=== PATIENT | male | born 1960 | race Caucasian/White ===

== ENCOUNTER 2020-05-04 13:02 | Emergency (ER) | payer OTHER ==
[~2020-05-04] VITALS: Ht 193 cm; Wt 102.1 kg
[2020-05-04 13:12] VITALS: BP_SYST 153
[2020-05-04] MEDS ORDERED: LIDOCAINE 1% 10 MG/ML, 20 ML MDV INJ ONE (13:45)
[2020-05-04] MEDS ORDERED: BACITRACIN 1 GM OINT TP ONE (13:45)
[2020-05-04] MEDS ORDERED: DIPH-TET-PERTUS Vaccine 0.5 ML VIAL (ADACEL) I.M. ONE (13:45)
[2020-05-04 14:50] VITALS: BP_SYST 144
== END 2020-05-04 14:50 | disposition home or self-care (01) ==
LOC: SED 13:02
DX: S01.21XA Laceration without foreign body of nose, initial encounter (principal); S01.511A Laceration without foreign body of lip, initial encounter; W01.0XXA Fall on same level from slipping, tripping and stumbling without subsequent striking against object, initial encounter; Y93.89 Activity, other specified; Y92.89 Other specified places as the place of occurrence of the external cause; Y99.8 Other external cause status
CPT/HCPCS: 12014; 90471; 90715; 99283; J2001

== ENCOUNTER 2021-08-26 13:05 | Inpatient (IN) | payer OTHER ==
[~2021-08-26] VITALS: Ht 193 cm; Wt 99.8 kg
--- NOTE | 2021-08-26 13:10 | NUR ---
Placed in room 05 . Placed on business analyst e[employer], blood pressure machine and pulse oximeter. To gown for exam. Side rails up.
[2021-08-26 13:15] VITALS: BP_SYST 154
[2021-08-26] MEDS ORDERED: MORPHINE 4 MG INJ. 4 MG/ML VIAL ONE (13:38)
[2021-08-26] MEDS ORDERED: NITROGLYCERIN 1 INCH (GM) OINT. ONE (13:39)
--- NOTE | 2021-08-26 13:40 | NUR ---
RECEIVED PT FROM LEILA, PT IS AAOX4. PT HAS C/O C/P THAT ARE RESOLVED AT THIS TIME. RESP E/U. NO R/A. ABDOMEN SOFT, NONTENDER, NONDISTENDED. BOWEL SOUNDS ACTIVE X4. PT DENIES N/V/D/C. DISTAL PULSES NORMAL, NO EDEMA. IV CATH 20 INSERTED TO , SITE WNL. S/L. PT HAS NO PAST MEDICAL HX.
--- NOTE | 2021-08-26 13:53 | NUR ---
Morphine ivp prn given for c/p.
[2021-08-26 14:10] LABS: BASOPHILS # (AUTO) 0.1 K/uL (0.0-0.2); BASOPHILS % (AUTO) 1.4 % (0.0-2.0); EOSINOPHILS % (AUTO) 0.5 % (0.0-4.0); HEMATOCRIT 43.8 % (36-54); HEMOGLOBIN 15.6 g/dL (14.0-18.0); LYMPHOCYTES # (AUTO) 1.7 K/uL (1.0-5.5); LYMPHOCYTES % (AUTO) 23.4 % (20.5-51.5); MEAN CORPUSCULAR HEMOGLOBIN 31 pg (27-31); MEAN CORPUSCULAR HGB CONC 36 % (32-36); MEAN CORPUSCULAR VOLUME 86 fL (79.0-98.0); MONOCYTES # (AUTO) 0.5 K/uL (0.0-1.0); MONOCYTES % (AUTO) 7.1 % (1.7-9.3); NEUTROPHILS % (AUTO) 67.6 % (40.0-70.0); PLATELET COUNT (AUTO) 282 K/uL (130-430); RED BLOOD CELL COUNT(AUTO) 5.07 MIL/uL (4.2-6.2); RED CELL DISTRIBUTION WIDTH 13.5 % (9.0-15.0); WHITE BLOOD COUNT (AUTO) 7.3 K/uL (4.8-10.8)
[2021-08-26 14:24] LABS: ALBUMIN 3.8 g/dL (3.4-4.8); CALCIUM 8.9 mg/dL (8.4-11.0); CREATININE 1.3 mg/dL (0.55-1.30); TOTAL BILIRUBIN 0.7 mg/dL (0.0-1.0)
[2021-08-26 14:33] LABS: POTASSIUM 3.4 mmol/L (3.5-5.1)
--- NOTE | 2021-08-26 14:40 | NUR ---
RECEIVED ORDER FROM DR. VELÁSQUEZ, PT IS TO ADMIT TO TELE FOR C/P, CARDIAC DIET WITH CONSULT OF DR. Oliver VELÁSQUEZ. ORDERS CARRIED OUT. PT MADE AWARE.
--- NOTE | 2021-08-26 14:41 | NUR ---
Admit bed requested Patient will be admitted to care of . Admitted to TELEMETRY unit. Diagnosis CHEST PAIN Inpatient (Yes or No) Observation (Yes or No) Orientation concerns or request close to nursing station (Yes or No) Covid Status On vent or bipap Isolation requirements Needs a sitter From Home (Yes or if No enter name of facility) Requires Dialysis (Yes or No) Med Rec Completed (Yes of No)
--- NOTE | 2021-08-26 14:43 | NUR ---
PT HAS NO HOME MEDS.
--- NOTE | 2021-08-26 14:44 | NUR ---
Admit bed requested Patient will be admitted to care of . Admitted to TELEMETRY unit. Diagnosis CHEST PAIN Inpatient (Yes or No) YES Observation (Yes or No) NO Orientation concerns or request close to nursing station (Yes or No) NO Covid Status NEG On vent or bipap NO Isolation requirements NO Needs a sitter NO From Home (Yes or if No enter name of facility) HOME Requires Dialysis (Yes or No) NO Med Rec Completed (Yes of No) YES
[2021-08-26] MEDS ORDERED: ONDANSETRON HCL 4 MG/2 ML VIAL IVP PRN (15:15)
[2021-08-26] MEDS ORDERED: ACETAMINOPHEN 325 MG TABLET PO PRN (15:15)
[2021-08-26] MEDS ORDERED: NALOXONE HCL 0.4 MG/ML AMP (NARCAN) IVP PRN ×2 (15:15)
[2021-08-26] MEDS ORDERED: HYDROcodone/ACETAMIN 5-325 MG TAB (NORCO/ VICODIN) PO PRN (15:15)
[2021-08-26] MEDS ORDERED: HYDROcodone/ACETAMIN 10-325 MG TAB PO PRN (15:15)
[2021-08-26] MEDS ORDERED: LORazepam 2 MG/ML VIAL IVP PRN (15:15)
[2021-08-26] MEDS ORDERED: MAGNESIUM SULFATE 50 ML IV ONE ×2 (15:24→15:30)
[2021-08-26 17:26] LABS: FREE T4 (FREE THYROXINE) 1.2 ng/dl (0.8-1.5); THYROID STIMULATING HORMONE 1.19 uIu/mL (0.36-3.74)
[2021-08-26 18:00] VITALS: BP_SYST 144
[2021-08-26 20:00] VITALS: BP_SYST 115
--- NOTE | 2021-08-26 20:00 | NUR ---
HAND-OFF REPORT RECEIVED FROM SUSY BURGOS. PT IN ROOM APPEARS RESTING. VOICED NO C/O AT THIS TIME. DENIES NEEDS. LEFT HAND 20 SL AND INTACT
[2021-08-26] MEDS ORDERED: NORMAL SALINE 5 ML DISP.SYRIN IVF SCH (22:00)
[2021-08-26] MEDS: NORMAL SALINE 5 ML DISP.SYRIN IVF SCH (22:00)
[2021-08-26] MEDS ORDERED: MORPHINE 4 MG INJ. 4 MG/ML VIAL IVP ONE (23:30)
[2021-08-26] MEDS ORDERED: NITROGLYCERIN 1 INCH (GM) OINT. TP ONE (23:30)
[2021-08-27] MEDS: NORMAL SALINE 5 ML DISP.SYRIN IVF SCH ×3 (06:00→22:00)
--- NOTE | 2021-08-27 06:30 | NUR ---
PM CLOSING NOTES UNEVENTFUL NIGHT. ACTUARIAL TRAINEE CONT'D SINUS RHYTHM IN 70'S. NO C/O CHEST PAIN THIS SHIFT.
[2021-08-27 07:50] LABS: BASOPHILS % (AUTO) 0.5 % (0.0-2.0); EOSINOPHILS # (AUTO) 0.1 K/uL (0.0-0.4); EOSINOPHILS % (AUTO) 0.8 % (0.0-4.0); HEMATOCRIT 41.4 % (36-54); HEMOGLOBIN 14.7 g/dL (14.0-18.0); MEAN CORPUSCULAR HEMOGLOBIN 31 pg (27-31); MEAN CORPUSCULAR HGB CONC 36 % (32-36); MEAN CORPUSCULAR VOLUME 87 fL (79.0-98.0); MONOCYTES # (AUTO) 0.6 K/uL (0.0-1.0); MONOCYTES % (AUTO) 8.6 % (1.7-9.3); NEUTROPHILS # (AUTO) 4.2 K/uL (1.8-7.7); NEUTROPHILS % (AUTO) 61.1 % (40.0-70.0); PLATELET COUNT (AUTO) 261 K/uL (130-430); RED BLOOD CELL COUNT(AUTO) 4.75 MIL/uL (4.2-6.2); RED CELL DISTRIBUTION WIDTH 13.6 % (9.0-15.0); WHITE BLOOD COUNT (AUTO) 6.9 K/uL (4.8-10.8)
[2021-08-27 08:00] VITALS: BP_SYST 139
[2021-08-27 08:10] LABS: CALCIUM 8.4 mg/dL (8.4-11.0); CREATININE 1.16 mg/dL (0.55-1.30); POTASSIUM 4.2 mmol/L (3.5-5.1); THYROID STIMULATING HORMONE 1.32 uIu/mL (0.36-3.74)
--- NOTE | 2021-08-27 17:30 | NUR ---
rn closing notes Patient remains on room air, no sob noted. Independent with ADL's. Remained on NSR all shift. No chest pain or any pain noted. Troponin values WNL.
--- NOTE | 2021-08-27 19:30 | NUR ---
PM OPENING NOTES HAND-OFF REPORT RECEIVED FROM CHANA RN. REPORTED TROPONIN ORDERED FOR TODAY AND PENDING RESULTS TO DETERMINE IF PT DISCHARGED TOMORROW. PT RECEIVED AWAKE IN BED. DENIES CHEST PAIN. STATED LAST EPISODE OF CHEST PAIN WAS "DURING CARDIO...ON ELLIPTICAL" 2 WEEKS AGO. STATES LOOKING FORWARD TO "GETTING OUTTA HERE". CONTINUE TO MONITOR LAB RESULT AND MONITOR AND ASSIST NEEDED.
[2021-08-27 20:00] VITALS: BP_SYST 126
[2021-08-28] MEDS: NORMAL SALINE 5 ML DISP.SYRIN IVF SCH (06:00)
--- NOTE | 2021-08-28 07:30 | NUR ---
PM CLOSING NOTES PT STATED LOOKING FORWARD TO GOING HOME NO MORE CHEST PAIN. PT SLEPT WELL COULD BE EXPECTED WITH NOISE LEVEL OFF THE CHART FROM NEIGHBORING ROOM. RELINQUISHED CAR OF PT AT THIS TIME.
[2021-08-28 07:42] LABS: CALCIUM 8.4 mg/dL (8.4-11.0); CREATININE 1.13 mg/dL (0.55-1.30); POTASSIUM 4.2 mmol/L (3.5-5.1)
[2021-08-28 09:15] LABS: BASOPHILS % (AUTO) 0.4 % (0.0-2.0); EOSINOPHILS # (AUTO) 0.1 K/uL (0.0-0.4); EOSINOPHILS % (AUTO) 1.5 % (0.0-4.0); HEMATOCRIT 40.3 % (36-54); HEMOGLOBIN 14.5 g/dL (14.0-18.0); LYMPHOCYTES # (AUTO) 1.5 K/uL (1.0-5.5); LYMPHOCYTES % (AUTO) 29.7 % (20.5-51.5); MEAN CORPUSCULAR HEMOGLOBIN 31 pg (27-31); MEAN CORPUSCULAR HGB CONC 36 % (32-36); MEAN CORPUSCULAR VOLUME 86 fL (79.0-98.0); MONOCYTES # (AUTO) 0.4 K/uL (0.0-1.0); MONOCYTES % (AUTO) 8.9 % (1.7-9.3); NEUTROPHILS % (AUTO) 59.5 % (40.0-70.0); PLATELET COUNT (AUTO) 236 K/uL (130-430); RED BLOOD CELL COUNT(AUTO) 4.66 MIL/uL (4.2-6.2); RED CELL DISTRIBUTION WIDTH 13.7 % (9.0-15.0)
[2021-08-28 09:52] VITALS: BP_SYST 143
[2021-08-28 11:19] VITALS: BP_SYST 144
[2021-08-28 11:21] VITALS: BP_SYST 144
--- NOTE | 2021-08-28 11:44 | NUR ---
rn notes patient DC at this time. Taking uber. VSS. No belongings missing per patient. Able to walk by himself and refused wheelchair to the front. Have all paperworks and has no current questions or concerns.
== END 2021-08-28 11:40 | disposition home or self-care (01) | DRG 206 ==
LOC: SED 13:05 → STU 14:35
PROVIDERS: ADMIT Preventive Medicine Preventive Medicine/Occupational Environmental Medicine; ATTEND Preventive Medicine Preventive Medicine/Occupational Environmental Medicine
DX: M94.0 Chondrocostal junction syndrome [Tietze] (principal); I10 Essential (primary) hypertension; E87.6 Hypokalemia; E78.5 Hyperlipidemia, unspecified; R73.9 Hyperglycemia, unspecified; Z20.822 Contact with and (suspected) exposure to COVID-19
CPT/HCPCS: 36415; 71045; 80048; 80053; 80061; 83735; 83880; 84100; 84439; 84443; 84484; 85025; 85379; 93005; 93306; 96374; 96375; 99291; G0378; J2270; J3475